=== PATIENT | male | born 1965 | race Caucasian/White ===

== ENCOUNTER 2020-07-24 20:04 | Emergency (ER) | payer MEDICARE, SELFPAY ==
[2020-07-24 20:06] VITALS: BP 145/102; PULSE 107; RESP 18; TEMP 36.9; O2SAT 95; BMI 20.7
--- NOTE | 2020-07-24 20:15 | PC.NURSE ---
called lab for medical lab draw
[2020-07-24 20:26] VITALS: BMI 20.7
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
--- NOTE | 2020-07-24 21:54 | PC.NURSE ---
called xray to get update on XR readings
[2020-07-24 22:13] VITALS: BP 123/83; PULSE 93; RESP 18; TEMP 36.6; O2SAT 96
== END 2020-07-24 22:15 | disposition home or self-care (01) ==
PROVIDERS: Emergency Provider Emergency Medicine; PCP Family Medicine
DX: S51.012A Laceration without foreign body of left elbow, initial encounter (principal); S22.42XA Multiple fractures of ribs, left side, initial encounter for closed fracture; W31.89XA Contact with other specified machinery, initial encounter; Y92.89 Other specified places as the place of occurrence of the external cause; F10.10 Alcohol abuse, uncomplicated; F17.210 Nicotine dependence, cigarettes, uncomplicated
CPT/HCPCS: 12001; 36415; 71045; 72170; 73080; 99283